=== PATIENT | female | born 1990 | race Caucasian/White ===

== ENCOUNTER 2018-10-26 18:28 | Emergency (ER) | payer OTHER ==
[2018-10-26] MEDS: PROMETHAZINE/CODEINE 5ML CUP PO (19:43)
[2018-10-26] MEDS: KETOROLAC 60 MG INJ IM (19:47)
== END 2018-10-26 19:55 | disposition home or self-care (01) ==
LOC: FTE 18:28
DX: J02.9 Acute pharyngitis, unspecified (principal); J06.9 Acute upper respiratory infection, unspecified
CPT/HCPCS: 81025; 96372; 99284-25